=== PATIENT | male | born 1980 | race Caucasian/White ===

== ENCOUNTER 2019-11-25 22:32 | Emergency (ER) | payer OTHER ==
[2019-11-25 22:45] VITALS: BP 115/79
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
[2019-11-25] MEDS ORDERED: KETOROLAC 60 MG/2 ML VIAL IM STA (23:28)
[2019-11-25] MEDS ORDERED: HYDROmorphone 1 MG/ML CARPUJECT IM STA (23:28)
[2019-11-25] MEDS ORDERED: oxyCODONE/ACET 5/325 Prepack 4 PO STA (23:29)
[2019-11-26] MEDS ORDERED: BACITRACIN ZINC OINT 1 PACKET TOP STA (00:01)
[2019-11-26] MEDS ORDERED: BACITRACIN ZINC OINT 14 GM TOP STA (00:05)
== END 2019-11-26 00:17 | disposition home or self-care (01) ==
LOC: ED 22:32
DX: T25.221A Burn of second degree of right foot, initial encounter (principal); T25.232A Burn of second degree of left toe(s) (nail), initial encounter; T31.0 Burns involving less than 10% of body surface; X12.XXXA Contact with other hot fluids, initial encounter; Y93.G3 Activity, cooking and baking
CPT/HCPCS: 16020; 96372; 99283; A9270; J1170

== ENCOUNTER 2021-09-15 08:00 | Outpatient (CLI) | payer OTHER ==
[2021-09-16 00:05] LABS: CHLAMYDIA TRACHOMATIS DNA NEGATIVE (NEGATIVE); NEISSERIA GONORRHOEAE DNA NEGATIVE (NEGATIVE)
[2021-09-18 12:06] LABS: HEPATITIS C ANTIBODY NON-REACTIVE (NON-REACTIVE)
[2021-09-18 12:10] LABS: HIV AG/AB 4TH GEN NON-REACTIVE (NON-REACTIVE)
[2021-09-19 14:21] LABS: HSV 1 IGG TYPE SPECIFIC AB 50.8 index; HSV 2 IGG TYPE SPECIFIC AB 0.93 index
== END 2021-09-15 23:59 | disposition home or self-care (01) ==
LOC: LAB.S 08:00
PROVIDERS: ATTEND Nurse Practitioner
DX: Z11.3 Encounter for screening for infections with a predominantly sexual mode of transmission (principal)
CPT/HCPCS: 81599; 86592; 86695; 86696; 86803; 87086; 87389; 87491; 87591; 87661

== ENCOUNTER 2022-07-30 19:07 | Emergency (ER) | payer OTHER ==
[2022-07-30 19:12] VITALS: BP 118/71
--- NOTE | 2022-07-30 19:55 | XRAY Report ---
PROCEDURE: Ankle 3 View LT INDICATIONS: Trauma TECHNIQUE: 3 views of the ankle were acquired. COMPARISON: None. FINDINGS: Bones: No fractures or dislocations. Ankle mortise is normally aligned. No suspicious bony lesions . Soft tissues: No tibiotalar joint effusion. Achilles tendon appears normal. IMPRESSION: No acute osseous abnormality identified. Consider follow-up radiographs in 10-14 days. Reviewed by: Olvin Albrecht MD on 07/30/2022 7:54 PM PDT Approved by: Olvin Albrecht MD on 07/30/2022 7:54 PM PDT Station ID: [id number]
[2022-07-30] MEDS ORDERED: IBUPROFEN 800 MG TABLET PO STA (20:32)
--- NOTE | 2022-07-30 20:36 | ED Physician Documentation ---
PD HPI LOWER EXT INJURY - Stated complaint Stated Complaint: ANKLE PX - Chief complaint Chief Complaint: Trauma Ext - History obtained from History obtained from: Patient - History of Present Illness PD HPI LOW EXT INJURY LOCATION: Left, Ankle Type of injury: Fall, Twist Pain level max: 4 Pain level now: 3 Improved by: Rest Worsened by: Moving, Palpating Associated symptoms: Swelling Recently seen: Not recently seen - Additional information Additional information: Patient is a 42-year-old male who presents to the emergency department after twisting his left ankle while running. [place] a pop. Worse with walking, better with rest. Noticed swelling to the lateral aspect of the ankle. Review of Systems Constitutional: denies: Fever, Chills GI: denies: Nausea, Vomiting Skin: denies: Rash Musculoskeletal: denies: Neck pain PD PAST MEDICAL HISTORY - Past Medical History Past Medical History: Yes Cardiovascular: None Respiratory: Asthma GI: Other : None HEENT: None Psych: None Musculoskeletal: None Derm: None - Past Surgical History Past Surgical History: Yes - Present Medications Home Medications: Ambulatory Orders Medication Instructions Recorded Confirmed Albuterol Sulf [Ventolin Hfa 1 - 2 puffs INH Q4HR PRN 07/30/22 07/30/22 Inhaler] - Allergies Allergies/Adverse Reactions: Allergies Allergy/AdvReac Type Severity Reaction Status Date / Time No Known Drug Allergies Allergy Verified 07/30/22 19:10 - Social History Does the pt smoke?: No Smoking Status: Never smoker Does the pt drink ETOH?: No Does the pt have substance abuse?: No - Immunizations Immunizations are current?: Yes - POLST Patient has POLST: No PD ED PE NORMAL - Vitals Vital signs reviewed: Yes - General General: Alert and oriented X 3, No acute distress - HEENT HEENT: Moist mucous membranes - Derm Derm: Warm and dry - Extremities Extremities: Other (Tender to palpation over the lateral malleolus of the left ankle with mild swelling. Neurovascular intact. No gross deformity. Otherwise normal examination of the foot and ankle as well as the lower leg.) - Neuro Neuro: Alert and oriented X 3 Results - Vitals Vitals: Vital Signs - 24 hr 07/30/22 07/30/22 19:10 20:36 Temperature 36.5 C Heart Rate 67 Respiratory 16 15 Rate Blood Pressure 118/71 O2 Saturation 98 Oxygen O2 Source Room air - Rads (name of study) Left ankle x-ray Radiology: Final report received, EMP read contemporaneously, See rad report (No acute abnormality) PD MEDICAL DECISION MAKING - ED course Complexity details: considered differential, d/w patient ED course: 42-year-old male with a left ankle sprain. Placed in a gel splint and given crutches. Declines pain medication for home. We will have him follow-up with his PCP if he is still having pain in 1 week. Patient counseled regarding signs and symptoms for which I believe and urgent re-evaluation would be necessary. Patient with good understanding of and agreement to plan and is comfortable going home at this time This document was made in part using voice recognition software. While efforts are made to proofread this document, sound alike and grammatical errors may occur. Departure - Departure Disposition: 01 Home, Self Care Clinical Impression: Ankle sprain Qualifiers: Encounter type: initial encounter Involved ligament of ankle: unspecified ligament Laterality: left Qualified Code(s): S93.402A - Sprain of unspecified ligament of left ankle, initial encounter Condition: Good Instructions: ED Sprain Ankle Follow-Up: your,doctor in 1 week if still having pain [Other] Comments: No acute abnormalities on x-ray today. This appears to be an ankle sprain. You may bear weight as tolerated. Please follow-up with your doctor as needed for further care. If you are still having pain in 1 week, you should have repeat x- rays performed. You can use Motrin or Tylenol as needed for pain. Forms: Activity restrictions Discharge Date/Time: 07/30/22 20:47
== END 2022-07-30 20:47 | disposition home or self-care (01) ==
LOC: ED 19:07
DX: S93.402A Sprain of unspecified ligament of left ankle, initial encounter (principal); X50.1XXA Overexertion from prolonged static or awkward postures, initial encounter; Y93.02 Activity, running
CPT/HCPCS: 73610; 99282; 99283; A9270